=== PATIENT | male | born 1950 | race Caucasian/White ===

== ENCOUNTER 2016-08-01 18:17 | Emergency (ER) | payer BC, OTHER ==
[2016-08-01 18:27] VITALS: TEMP 98.1
--- NOTE | 2016-08-01 19:02 | DX ---
Right Shoulder , 3 Views History: Pain post trauma. Fall. Skiing injury. Findings: There is a comminuted humeral head and neck fracture. The humeral head remains normally ali gned in the glenoid. There are intra-articular components. The AC joint remains normally aligned. The re are fracture deformities of the posterior lateral right fifth, sixth and seventh ribs that are lik shandra old. Impression: Comminuted humeral head fracture.
--- NOTE | 2016-08-01 19:27 | EDPHY ---
H & P Time Seen by Provider: 08/01/16 19:14 HPI/ROS: CHIEF COMPLAINT: Right shoulder pain HISTORY OF PRESENT ILLNESS: 65-year-old male arrives via private vehicle complaining of acute right shoulder pain after he was skiing and fell onto his right shoulder. Reproducible pain with range of motion. No paresthesia. No head injury. PHYSICAL EXAM (Prior to examination, patient consented to physical exam, hands were washed and my usual and customary physical exam procedures followed) 1) GENERAL: Well-developed, well-nourished, alert and oriented. Appears to be in no acute distress. 2) HEAD: Normocephalic 3) HEENT: Pupils equal, round, reactive to light bilaterally. 4) LUNGS: Breathing comfortably. 5) MUSCULOSKELETAL: Tender to palpation right shoulder. Reproducible pain with range of motion. Soft compartments. Normal coloration. 6) SKIN: intact. 7) VASCULAR: pulses and cap refill present are brisk 8) NEUROLOGIC: Radial, ulnar, median nerve function intact with no deficits appreciated on exam DIFFERENTIAL DIAGNOSIS: in no particular order including but not limited to fracture, sprain, compartment syndrome Procedure: Splint An upper extremity sling was applied by ER mechanical manufacturing technician. After application of the splint I returned and re-examined the patient. The splint was adequately immobilizing the joint and distal to the splint the patient's circulation and sensation were intact. Patient shows no signs of compartment syndrome. Was given orthopedic precautions. Smoking Status: Never smoked Constitutional: Initial Vital Signs Temperature (C) 36.7 C 08/01/16 18:24 Heart Rate 84 08/01/16 18:24 Respiratory Rate 19 08/01/16 18:24 Blood Pressure 166/95 H 08/01/16 18:24 O2 Sat (%) 95 08/01/16 18:24 O2 Delivery Mode Room Air Allergies/Adverse Reactions: No Known Allergies Allergy (Unverified 08/01/16 18:24) Home Medications: Medication Instructions Recorded Advair 100/50 (*) 08/01/16 oxyCODONE/APAP 5/325 [Percocet 1 tab PO Q6 #10 tab 08/01/16 5/325] MDM/Departure - MDM Diagnostics: Right Shoulder , 3 Views History: Pain post trauma. Fall. Skiing injury. Findings: There is a comminuted humeral head and neck fracture. The humeral head remains normally aligned in the glenoid. There are intra-articular components. The AC joint remains normally aligned. There are fracture deformities of the posterior lateral right fifth, sixth and seventh ribs that are likely old. Impression: Comminuted humeral head fracture. Dictated By: Buster Lozoya MD Images reviewed by myself ED Course/Re-evaluation: 7:35 p.m.: Phone consultation with Dr. Mohsen Medina who agrees with plan of sling and follow up in office.. Discussed case Dr. Sam Fair in ER - Depart Disposition: Home, Routine, Self-Care Clinical Impression: Fracture of humeral head, right, closed Qualifiers: Encounter type: initial encounter Qualifier Code: (S42.291A) Other displaced fracture of upper end of right humerus, initial encounter for closed fracture Condition: Good Instructions: Arm Fracture in Adults (ED) Additional Instructions: Return to the ER immediately if you experience discoloration, have worsening pain, numbness, tingling, or any other symptoms that concern you. If you received x-rays in the emergency department today, be advised, that ligamentous , tendon, muscular, and other non-bony injury cannot be fully ruled out. Try to keep your affected extremity elevated above the level of your chest, and keep cold packs on the affected area, for the next 48 hours. Prescriptions: oxyCODONE/APAP 5/325 [Percocet 5/325] 1 tab PO Q6 #10 tab Referrals: Mohsen Medina MD [Medical Doctor] - 2-3 days, call for appt.
[2016-08-01] MEDS ORDERED: HYDROCODONE/APAP 5/325 TAB PO ONE (19:35)
[2016-08-01] MEDS ORDERED: HYDROCOD/APAP 5/325 PREPACK#6 BTL TAKEHOME ONE (19:42)
[2016-08-01 20:00] VITALS: BP 148/89; PULSE 72; RESP 16; O2SAT 96
== END 2016-08-01 19:58 | disposition home or self-care (01) ==
DX: S42.291A Other displaced fracture of upper end of right humerus, initial encounter for closed fracture (principal); V00.321A Fall from snow-skis, initial encounter; Y99.8 Other external cause status; Y93.23 Activity, snow (alpine) (downhill) skiing, snowboarding, sledding, tobogganing and snow tubing
CPT/HCPCS: A4565